=== PATIENT | female | born 1985 | race Caucasian/White ===

== ENCOUNTER 2020-07-19 03:50 | Emergency (ER) | payer SELFPAY ==
[~2020-07-19] VITALS: Ht 157.5 cm; Wt 47.6 kg
--- NOTE | 2020-07-19 03:57 | PHYS DOC ---
Past History Smoking: Cigarettes General Adult HPI: HPI: ".. I was pushing a car .. that was stuck . .. and I fell on this Rt. elbow.. that was back on the 06/28.. but it has been swollen and red ever since.. I think the abrasion got infected... " Patient is a 35 year old female who presents with above hx and complaints fall and now infected Rt. elbow. Patient currently has very inflamed and infected elbow. Does have spontaneous rupture of abscess that is medial however has another abscess that is lateral that is not draining.. Patient states her tetan us was updated 2 to 3 years ago. Patient denies any history immunosuppression or IV drug use. Currently patient is unable to straighten elbow because of pain. No recent travel. No specific ill contacts. Patient has been attempting to drain right elbow abscess. Patient does smoke. Review of Systems: Review of Systems: Constitutional: Denies fever or chills Eyes: Denies change in visual acuity HENT: Denies nasal congestion or sore throat Respiratory: Denies cough or shortness of breath Cardiovascular: Denies chest pain or edema GI: Denies abdominal pain, nausea, vomiting, bloody stools or diarrhea : Denies dysuria Musculoskeletal: Denies back pain or joint pain Integument: Complains of cellulitis and abscess right elbow after blunt injury 06/28 Neurologic: Denies headache, focal weakness or sensory changes Endocrine: Denies polyuria or polydipsia Lymphatic: Denies swollen glands Psychiatric: Denies depression or anxiety Family History: Family History: Noncontributory Current Medications: Current Meds: See nursing for home meds Allergies: Allergies: No known drug allergies Physical Exam: PE: Constitutional: Moderate acute distress, non-toxic appearance. [] HENT: Normocephalic, atraumatic, bilateral external ears normal, oropharynx moist, no oral exudates, nose normal. [] Eyes: PERRLA, EOMI, conjunctiva normal, no discharge. [] Neck: Normal range of motion, no tenderness, supple, no stridor. [] Cardiovascular: Tachycardia heart rate regular rhythm, no murmur [] Lungs & Thorax: Bilateral breath sounds equal at apex with scattered wheezes auscultation [] Abdomen: Bowel sounds normal, soft, no tenderness, no masses, no pulsatile masses. [] Skin: Warm, dry, no erythema, no rash. Cellulitis and abscess right elbow as per HPI Back: No tenderness, no CVA tenderness. [] Extremities: Right elbow tenderness, no cyanosis, no clubbing, ROM decreased in right elbow, right elbow edema. [] Pulses and sensation are equal in both hands. No striation. No axillary adenopathy Neurologic: Alert and oriented X 3, normal motor function, normal sensory function, no focal deficits noted. [] Psychologic: Affect anxious, judgement normal, mood normal. [] EKG: EKG: [] Radiology/Procedures: Radiology/Procedures: [] Heart Score: Risk Factors: Risk Factors: DM, Current or recent (<one month) smoker, HTN, HLP, family history of CAD, obesity. Risk Scores: Score 0 - 3: 2.5% MACE over next 6 weeks - Discharge Home Score 4 - 6: 20.3% MACE over next 6 weeks - Admit for Clinical Observation Score 7 - 10: 72.7% MACE over next 6 weeks - Early Invasive Strategies Course & Med Decision Making: Course & Med Decision Making Pertinent Labs and Imaging studies reviewed. (See chart for details) Procedure note-incision and drainage-right elbow Abscess right elbow was cleaned with Betadine-1 stick with scalpel drained abscess. Culture swab placed in incision site and septations broken down. Culture sent for C&S. Patient received Rocephin 1 g and Bactrim DS. No fracture noted on x-ray or foreign body. However patient warned that if there is no improvement of the cellulitis and abscess next 3 days must follow-up at our hospital it offers inpatient orthopedic and IV antibiotics. Patient to use warm compresses or soaks of salt water or Epson salts. To do this 4 times a day. Massage area Polysporin. However if no improvement must present to hospital that has inpatient orthopedics. Impression: 1. Fall Contusion Rt elbow and abrasion 06/28/20 2. Cellulitis [] Dragon Disclaimer: Dragon Disclaimer: This electronic medical record was generated, in whole or in part, using a voice recognition dictation system. Departure Departure: Referrals: PCP,JUANPABLO (PCP) Scripts Sulfamethoxazole/Trimethoprim (BACTRIM DS TABLET) 1 Each Tablet 1 TAB PO BID for cellulitis /abscess for 10 Days, #20 TAB 0 Refills Prov: VINAY JONES MD 07/19/20 Flaco Disclaimer This chart was dictated in whole or in part using Voice Recognition software in a busy, high-work load, and often noisy Emergency Department environment. It may contain unintended and wholly unrecognized errors or omissions. VINAY JONES MD Jul 19, 2020 03:57
[2020-07-19] MEDS ORDERED: ONDANSETRON ODT 4 MG TAB.RAPDIS ONE (04:40)
--- NOTE | 2020-07-19 04:41 | RAD ---
Study: XR ELBOW COMPLETE_RIGHT 3+ VIEWS Indication: Fall. Comparison: None. Findings: No acute fracture or traumatic malalignment. No significant elbow joint effusion to suggest an occult fracture. Soft tissue injury to the dorsum of the elbow most notably overlying the olecranon process. Soft tiss ue heterogeneity seen at the distal triceps. No retained radiopaque foreign body. Impression: 1. No acute fracture or traumatic malalignment. 2. Soft tissue injury to the dorsum of the elbow. Reportedly extension is limited - eventual MRI woul d allow for more complete assessment of triceps integrity. Electronically signed by: ANTON SPAIN MD (07/19/2020 4:38 AM) [facility]
[2020-07-19] MEDS ORDERED: cefTRIAXone IM 1 GM VIAL IM ONE (05:00)
[2020-07-19] MEDS ORDERED: ONDANSETRON ODT 4 MG TAB.RAPDIS PO ONE (05:00)
[2020-07-19] MEDS ORDERED: SMZ/TMP 800/160MG TABLET. PO ONE (05:00)
[2020-07-19] MEDS ORDERED: oxyCODONE/APAP 5/325 1 TAB TABLET PO ONE (05:00)
[2020-07-19] MEDS ORDERED: SULF1TAB24 PO (05:11)
[2020-07-19 05:15] VITALS: BP 112/59
== END 2020-07-19 05:30 | disposition home or self-care (01) ==
LOC: ER 03:50
DX: S50.01XA Contusion of right elbow, initial encounter (principal); L03.113 Cellulitis of right upper limb; F17.210 Nicotine dependence, cigarettes, uncomplicated; W18.39XA Other fall on same level, initial encounter; Y93.89 Activity, other specified; Y92.89 Other specified places as the place of occurrence of the external cause; Y99.8 Other external cause status
CPT/HCPCS: 73080; 87071; 87075; 96372; 99284; J0696; Q0162

== ENCOUNTER 2021-01-08 15:24 | Emergency (ER) | payer SELFPAY ==
[~2021-01-08] VITALS: Ht 157.5 cm; Wt 47.0 kg
[~2021-01-08 15:24] MED LIST: SULF1TAB24 PO
--- NOTE | 2021-01-08 15:43 | PHYS DOC ---
Past History Past Medical History: Anxiety Past Surgical History: Tubal ligation Smoking: Cigarettes Alcohol Use: Heavy General Adult EDM: Chief Complaint: abscess HPI: HPI: 35-year-old female presents with abscess of the left elbow. Patient woke up 6 days ago with what she thought was a spider bite. It is gotten worse since that time. It is now red hot and swollen over her posterior elbow. The patient has had abscesses in the past. She denies fever or chills. No fever on arrival. Review of Systems: Review of Systems: Constitutional: Denies fever or chills Eyes: Denies change in visual acuity HENT: Denies nasal congestion or sore throat Respiratory: Denies cough or shortness of breath Cardiovascular: Denies chest pain or edema GI: Denies abdominal pain, nausea, vomiting, bloody stools or diarrhea : Denies dysuria Musculoskeletal: Denies back pain or joint pain Integument: Abscess Neurologic: Denies headache, focal weakness or sensory changes Endocrine: Denies polyuria or polydipsia Lymphatic: Denies swollen glands Psychiatric: Denies depression or anxiety Current Medications: Current Meds: Current Medications Medications (Trade) Dose Ordered Sig/Cj Start Time Stop Time Status Last Admin Dose Admin Sodium Chloride 1,000 ml @ 1,000 mls/hr 1X ONCE 01/08/21 15:45 01/08/21 16:44 UNV Allergies: Allergies: Allergies Coded Allergies Type Severity Reaction Last Updated Verified peanut Allergy Severe 07/19/20 Yes bee venom protein (honey bee) Allergy Unknown 07/19/20 Yes Physical Exam: PE: Constitutional: Well developed, well nourished, no acute distress, non-toxic appearance. [] HENT: Normocephalic, atraumatic, bilateral external ears normal, oropharynx moist, no oral exudates, nose normal. [] Eyes: PERRLA, EOMI, conjunctiva normal, no discharge. [] Neck: Normal range of motion, no tenderness, supple, no stridor. [] Cardiovascular:Heart rate regular rhythm, no murmur [] Lungs & Thorax: Bilateral breath sounds clear to auscultation [] Abdomen: Bowel sounds normal, soft, no tenderness, no masses, no pulsatile masses. [] Skin: Erythematous hot skin of the left elbow 6 cm x 6 cm with 2 areas of fluctuance consistent with abscess [] Back: No tenderness, no CVA tenderness. [] Extremities: No tenderness, no cyanosis, no clubbing, ROM intact, no edema. [] Neurologic: Alert and oriented X 3, normal motor function, normal sensory function, no focal deficits noted. [] Psychologic: Affect normal, judgement normal, mood normal. [] EKG: EKG: [] Radiology/Procedures: Radiology/Procedures: [] Heart Score: C/O Chest Pain: N/A Risk Factors: Risk Factors: DM, Current or recent (<one month) smoker, HTN, HLP, family history of CAD, obesity. Risk Scores: Score 0 - 3: 2.5% MACE over next 6 weeks - Discharge Home Score 4 - 6: 20.3% MACE over next 6 weeks - Admit for Clinical Observation Score 7 - 10: 72.7% MACE over next 6 weeks - Early Invasive Strategies Course & Med Decision Making: Course & Med Decision Making Pertinent Labs and Imaging studies reviewed. (See chart for details) The patient's elbow abscess may or may not be involving the joint. It is difficult to say with definitively. I was able to drain her abscess. See I&D note below. We will cover her with vancomycin and Zosyn in the ED and then discharge her with Keflex and Bactrim. Her penicillin allergy is a rash from years ago. I warned the patient that if the redness continues to expand despite antibiotics that she may need to be in the hospital for IV antibiotics and other interventions if it involves the joint itself. Patient states verbal understanding. The patient's labs are significant for a low potassium of 2.9. We have given her oral replacement. She is stable for discharge at this time. [] Dragon Disclaimer: Flaco Disclaimer: This electronic medical record was generated, in whole or in part, using a voice recognition dictation system. Incision and Drainage Indication: 2 cm abscess of the left lateral elbow. Procedure: I obtained verbal consent from the patient for incision and drainage of her elbow abscess. The skin was thoroughly cleaned with alcohol. 1% lidocaine with epinephrine was used for anesthesia. I made a 5 mm incision with a #11 blade into the center of the abscess. There was purulent drainage. I broke up loculations with a sterile wooden probe. More purulent material was expressed. There was a second small abscess over the olecranon I attempted to drain. I made a 2 mm incision with a minimal amount of purulent drainage. No probing was necessary. A clean dressing was applied. Antibiotics were given in the ED. The patient tolerated the procedure well. Complications: None Departure Departure: Impression: Primary Impression: Abscess of left elbow Additional Impression: Hypokalemia Disposition: HOME / SELF CARE / HOMELESS Condition: STABLE Referrals: PCP,NO (PCP) Patient Instructions: Abscess, Care After Scripts Sulfamethoxazole/Trimethoprim (BACTRIM DS TABLET) 1 Each Tablet 1 TAB PO BID for cellulitis for 10 Days, #20 TAB 0 Refills Prov: LEIDA DEVLIN DO 01/08/21 Cephalexin (CEPHALEXIN) 500 Mg Tablet 1 TAB PO TID for cellulitis for 10 Days, #30 TAB Prov: LEIDA DEVLIN DO 01/08/21 LEIDA DEVLIN DO Jan 08, 2021 15:43
[2021-01-08] MEDS ORDERED: IV NORMAL SALINE 1,000ML 1,000 ML IV ONE (15:45)
[2021-01-08 16:21] LABS: BASO # 0.1 x10^3/uL (0.0-0.2); BASO % 1 % (0-3); EOS % 0 % (0-3); HEMATOCRIT 50.4 % (36.0-47.0); HEMOGLOBIN 17.1 g/dL (12.0-15.5); LYMPH # 1.8 x10^3/uL (1.0-4.8); LYMPH % 18 % (24-48); MEAN CORPUSCULAR HEMOGLOBIN 31 pg (25-35); MEAN CORPUSCULAR HGB CONC 34 g/dL (31-37); MEAN CORPUSCULAR VOLUME 93 fL (79-100); MONO # 0.7 x10^3/uL (0.0-1.1); MONO % 7 % (0-9); NEUT # 7.5 x10^3uL (1.8-7.7); NEUT % 74 % (31-73); PLATELET COUNT 122 x10^3/uL (140-400); RED BLOOD COUNT 5.45 x10^6/uL (3.50-5.40); RED CELL DISTRIBUTION WIDTH 13.9 % (11.5-14.5); WHITE BLOOD COUNT 10.1 x10^3/uL (4.0-11.0)
[2021-01-08] MEDS ORDERED: PIPERACILLIN/TAZOBACTAM 3.375 GM in IV NORMAL SALINE 50ML 50 ML IV ONE (16:30)
[2021-01-08] MEDS ORDERED: VANCOMYCIN 1.5 GM in IV NORMAL SALINE 500ML 500 ML IV ONE (16:30)
[2021-01-08] MEDS ORDERED: SULF1TAB24 PO (16:38)
[2021-01-08] MEDS ORDERED: CEPH500T PO (16:38)
[2021-01-08 16:43] LABS: ALBUMIN 3.3 g/dL (3.4-5.0); ALBUMIN/GLOBULIN RATIO 0.8 (1.0-1.7); CALCIUM 8.4 mg/dL (8.5-10.1); CREATININE 0.7 mg/dL (0.6-1.0); GFR 96.4; TOTAL BILIRUBIN 0.2 mg/dL (0.2-1.0); TOTAL PROTEIN 7.3 g/dL (6.4-8.2)
[2021-01-08 16:44] LABS: POTASSIUM 2.9 mmol/L (3.5-5.1)
[2021-01-08] MEDS ORDERED: IV NORMAL SALINE 50ML 50 ML ONE (16:49)
[2021-01-08] MEDS ORDERED: PIPERACILLIN/TAZOBACTAM 3.375 GM VIAL IV ONE (16:49)
[2021-01-08] MEDS ORDERED: POTASSIUM CHLORIDE 20 MEQ TABLET.ER. PO ONE (17:00)
[2021-01-08] MEDS ORDERED: ONDANSETRON PF 4 MG/2 ML VIAL. IVP ONE (17:00)
[2021-01-08] MEDS ORDERED: MORPHINE SULFATE 2 MG/ML DISP.SYRIN. ONE (17:00)
[2021-01-08] MEDS ORDERED: MORPHINE SULFATE 2 MG/ML DISP.SYRIN. IV ONE (17:00)
[2021-01-08] MEDS ORDERED: VANCOMYCIN 1.25 GM in IV NORMAL SALINE 250ML 250 ML IV ONE (17:00)
[2021-01-08 20:02] VITALS: BP 146/86
== END 2021-01-08 20:05 | disposition home or self-care (01) ==
LOC: ER 15:24
DX: L02.414 Cutaneous abscess of left upper limb (principal); E87.6 Hypokalemia; F17.210 Nicotine dependence, cigarettes, uncomplicated; Z98.51 Tubal ligation status; Z91.010 Allergy to peanuts
CPT/HCPCS: 36415; 80053; 83605; 85025; 87040; 96365; 96366; 96368; 96375; 99285; J2270; J2405; J2543; J3370; J7030; J7050